=== PATIENT | female | born 1990 | race Caucasian/White ===

== ENCOUNTER 2017-10-14 08:42 | Day surgery (SDC) | payer MEDICAID ==
[2017-10-14 10:05] LABS: ADD MAN DIFF? NO
[2017-10-14 10:09] LABS: BASOPHILS % 0.3 % (0.0-2.0); EOSINOPHILS # 0.1 10^3/ul (0.0-0.5); EOSINOPHILS % 1.8 % (0.0-7.0); HEMATOCRIT 35.7 % (37.0-47.0); HEMOGLOBIN 11.8 g/dl (12.0-16.0); LYMPHOCYTES # 1.7 10^3/ul (0.8-2.9); LYMPHOCYTES % 27.3 % (15.0-51.0); MEAN CORPUSCULAR HGB CONC 33.1 g/dl (32.0-37.0); MEAN CORPUSCULAR VOLUME 84.8 fl (82.0-101.0); MEAN PLATELET VOLUME 10.9 fl (7.4-10.4); MONOCYTE # 0.5 10^3/ul (0.3-0.9); MONOCYTES % 7.4 % (0.0-11.0); NEUTROPHIL # 3.8 10^3/ul (1.6-7.5); NEUTROPHILS % 62.7 % (39.0-77.0); PLATELET COUNT 229 10^3/UL (140-415); RED BLOOD COUNT 4.21 10^6/ul (4.20-5.40); RED CELL DISTRIBUTION WIDTH 16.4 % (11.5-14.5)
[2017-10-14 10:09] LABS: WHITE BLOOD COUNT 6.1 10^3/ul (4.8-10.8)
[2017-10-14] MEDS ORDERED: NEOSTIGMINE 3 MG/3 ML SYRINGE (12:46)
[2017-10-14] MEDS ORDERED: CEFAZOLIN 1 GM INJ (12:46)
[2017-10-14] MEDS ORDERED: ROCURONIUM 50 MG INJ (12:46)
[2017-10-14] MEDS ORDERED: PROPOFOL 20 ML (12:46)
[2017-10-14] MEDS ORDERED: GLYCOPYRROLATE 0.4 MG INJ (12:46)
[2017-10-14] MEDS ORDERED: DEXAMETHASONE 4 MG/ML 1 ML INJ (12:50)
[2017-10-14] MEDS ORDERED: FENTAnyl 50 MCG/ML VIAL (12:50)
[2017-10-14] MEDS ORDERED: ONDANSETRON 4 MG INJ (12:50)
[2017-10-14] MEDS ORDERED: MIDAZOLAM 1 MG/ML 2 ML INJ (12:50)
[2017-10-14] MEDS: BUPIVACAINE 0.5%/EPI (SDV) 30 ML INJ (13:20)
[2017-10-14] MEDS ORDERED: SUGAMMADEX SODIUM 200 MG/2 ML VIAL IV (13:51)
[2017-10-14] MEDS ORDERED: MIDAZOLAM 1 MG/ML 2 ML INJ IV (14:00)
[2017-10-14] MEDS ORDERED: IPRATROPIUM (NEB) 0.5 MG/2.5 ML AMP HHN (14:00)
[2017-10-14] MEDS ORDERED: DIPHENHYDRAMINE 50 MG INJ IV (14:00)
[2017-10-14] MEDS ORDERED: FENTAnyl 50 MCG/ML VIAL IV ×2 (14:00)
[2017-10-14] MEDS ORDERED: LABETALOL HCL 20MG INJ IV (14:00)
[2017-10-14] MEDS ORDERED: ALBUTEROL 0.083% (NEB) 2.5 MG/3 ML AMP HHN (14:00)
[2017-10-14] MEDS ORDERED: HYDROmorphONE (0.2 MG/ML) 10ML SYG IV ×3 (14:00)
[2017-10-14] MEDS ORDERED: TRIMETHOBENZAMIDE 100 MG/ML VIAL IM (14:00)
[2017-10-14] MEDS ORDERED: hydrALAzine 20 MG INJ IV (14:00)
[2017-10-14] MEDS ORDERED: MEPERIDINE 25 MG INJ IV (14:00)
[2017-10-14] MEDS ORDERED: EPHEDrine SULFATE 50 MG/5 ML SYG IV (14:00)
[2017-10-14] MEDS: FENTAnyl 50 MCG/ML VIAL IV ×2 (14:14→14:29)
[2017-10-14] MEDS: ONDANSETRON 4 MG INJ IV (14:14)
[2017-10-14] MEDS ORDERED: morphine 2 MG INJ IV (14:30)
[2017-10-14] MEDS ORDERED: ONDANSETRON 4 MG INJ IV (14:30)
[2017-10-14] MEDS ORDERED: HYDROCODONE/APAP (5/325) TAB PO (14:30)
[2017-10-14] MEDS: KETOROLAC 30 MG INJ IV (14:53)
[2017-10-14] MEDS: OXYCODONE/ACETAMINOPHEN (5/325) TAB PO ×2 (14:56→16:04)
== END 2017-10-14 16:29 | disposition home or self-care (01) ==
LOC: SDS 08:42
DX: Z30.2 Encounter for sterilization (principal)
CPT/HCPCS: 58670; 85025; 88302